=== PATIENT | male | born 1970 | race Caucasian/White ===

== ENCOUNTER 2020-08-05 13:09 | Emergency (ER) | payer OTHER, BC ==
[~2020-08-05 13:09] MED LIST: Iopamidol-370 76% 500 ML 1 ML ONE
[2020-08-05] MEDS ORDERED: Fentanyl 100 MCG/2 ML VIAL ONE (13:31)
[2020-08-05] MEDS ORDERED: Ondansetron PF 4 MG/2 ML Vial ONE ×2 (13:31→13:48)
[2020-08-05] MEDS ORDERED: Boostrix 0.5 ML (Tdap) VIAL ONE (13:31)
[2020-08-05] MEDS ORDERED: Lidocaine 1% (PF) 30 ML VIAL ONE (13:31)
== END 2020-08-05 14:43 | disposition home or self-care (01) ==
LOC: ERS 13:09
DX: S06.0X9A Concussion with loss of consciousness of unspecified duration, initial encounter (principal); S01.21XA Laceration without foreign body of nose, initial encounter; S30.1XXA Contusion of abdominal wall, initial encounter; V89.2XXA Person injured in unspecified motor-vehicle accident, traffic, initial encounter
CPT/HCPCS: 12011; 70450; 71260; 74177; 90471; 90715; 96374; 96375; J2001; J2405; J3010; Q9967